=== PATIENT | female | born 1990 | race Caucasian/White ===

== ENCOUNTER → 2017-07-09 | Emergency (ER) | payer MEDICAID | END | disposition left against medical advice (07) | LOC: ED 00:03 | DX: Z53.9 Procedure and treatment not carried out, unspecified reason (principal) ==

== ENCOUNTER 2019-06-06 03:27 | Inpatient (IN) | payer OTHER ==
[2019-06-06 04:35] LABS: BASOPHIL % 0.2 % (0.0-0.4); Basophil (Absolute #) 0.02 (0-0.4); Eosinophil % 1.2 % (0.00-5.0); Eosinophil (Absolute #) 0.13 (0-0.5); Granulocyte Absolute (ANC) 7.78 (1.4-6.9); Granulocytes % 74.1 % (36.0-66.0); Hematocrit 32.3 % (35-47); Hemoglobin 11.1 gm/dl (12.0-16.0); Lymphocyte (Absolute #) 1.85 (1.0-4.6); Lymphocytes % 17.6 % (24.0-44.0); Mean Corpuscular Hgb Concent. 34.4 g/dl (32-36); Monocyte (Absolute #) 0.73 (0.0-1.3); Monocytes % 6.9 % (0.0-12.0); Platelet Count 111 K/mm3 (150-450); Red Blood Count 3.63 M/mm3 (4.1-5.4); Red Cell Distribution Width 14.2 % (11.5-14.0); White Blood Count 10.5 K/mm3 (4.0-10.5)
[2019-06-06 04:35] LABS: Appearance SLIGHTLY CLOUDY (CLEAR); Bilirubin NEGATIVE (NEGATIVE); Blood SMALL Ery/ul (0-5); Epithelial Cells RARE /HPF (FEW); Glucose NEGATIVE (NEGATIVE); Ketones NEGATIVE (NEGATIVE); Leukocyte Esterase LARGE (NEGATIVE); Mucus SLIGHT /HPF (NEGATIVE); Nitrite NEGATIVE (NEGATIVE); Protein,Urine Dip NEGATIVE (Negative); Specific Gravity 1.011 (1.005-1.025); Urobilinogen NEGATIVE mg/dL (0-1)
[2019-06-06 04:39] LABS: Mean Corpuscular Hemoglobin 30.5 pg (26-32)
[2019-06-06 04:41] LABS: Amphetamine,Urine NEGATIVE (NEGATIVE); Barbiturate,Urine NEGATIVE (NEGATIVE); Benzodiazepine,Urine NEGATIVE (NEGATIVE); Cocaine,Urine NEGATIVE (NEGATIVE); Methadone,Urine NEGATIVE (NEGATIVE); Opiate,Urine NEGATIVE (NEGATIVE); PCP,Urine NEGATIVE (NEGATIVE); THC,Urine NEGATIVE (NEGATIVE)
[2019-06-06 04:44] LABS: INR 0.96 (0.8-3.0); PROTIME 10.8 SECONDS (9.95-12.35)
[2019-06-06 04:47] LABS: PTT 28.5 SECONDS (25.3-37.0)
[2019-06-06] MEDS ORDERED: Lactated Ringers 1,000 ML IV SCH (05:00)
[2019-06-06] MEDS ORDERED: Reglan 10 MG/2 ML IV SCH (05:00)
[2019-06-06] MEDS ORDERED: Pepcid 20 MG VIAL IV SCH (05:00)
[2019-06-06] MEDS ORDERED: Nubain 10 MG/ML IV PRN (05:00)
[2019-06-06] MEDS ORDERED: Dulcolax 10 MG SUPP PR PRN (05:00)
[2019-06-06] MEDS ORDERED: Anucort-HC SUPPOSITORY PR PRN (05:00)
[2019-06-06] MEDS ORDERED: CORTISONE 1% CREAM TP PRN (05:00)
[2019-06-06] MEDS ORDERED: DEMEROL 50 MG IV PRN (05:00)
[2019-06-06] MEDS ORDERED: TYLENOL EXTRA STRENGTH 500 MG PO PRN (05:00)
[2019-06-06] MEDS ORDERED: BICITRA 30 ML CUP PO SCH (05:00)
[2019-06-06] MEDS ORDERED: CLINDAMYCIN-D5W 900 MG/50 ML*** 900 MG/50 ML BAG IV SCH (05:00)
[2019-06-06] MEDS ORDERED: LANSINOH 40 GM TOP PRN (05:00)
[2019-06-06] MEDS ORDERED: MORPHINE SULFATE 2 MG INJ IV PRN (05:00)
[2019-06-06 05:01] LABS: ABO TYPING B; Antibody Screen NEGATIVE (NEGATIVE); RH TYPING NEGATIVE
[2019-06-06] MEDS ORDERED: Astramorph-Pf 5 MG/10 ML ONE (06:15)
[2019-06-06] MEDS ORDERED: Pitocin 10 UNITS/ML ONE ×2 (06:17→06:58)
[2019-06-06] MEDS ORDERED: PHENYLEPHRINE HCL ONE (06:18)
[2019-06-06] MEDS ORDERED: Lactated Ringers 1,000 ML IV ONE ×2 (06:21→06:25)
[2019-06-06] MEDS ORDERED: Zofran 4 MG/2 ML VIAL IV PRN (07:00)
[2019-06-06] MEDS ORDERED: HOLD NARCOTIC ANALGESICS AND SEDATIVES X24 HR MC PRN (07:00)
[2019-06-06] MEDS ORDERED: Narcan 0.4 MG/ML IV PRN (07:00)
[2019-06-06] MEDS ORDERED: BENADRYL 50 MG/ML IV PRN (07:00)
[2019-06-06] MEDS ORDERED: MARCAINE 0.5%-EPI 1:200,000 VL IJ ONE (07:12)
[2019-06-06] MEDS ORDERED: DEMEROL 50 MG ONE (07:50)
--- NOTE | 2019-06-06 08:29 | OP ---
SURGERY DATE/TIME: 06/06/2019629 PREOPERATIVE DIAGNOSES: 1) History of prior section. 2) Term intrauterine . POSTOPERATIVE DIAGNOSES: 1) History of prior section. 2) Term intrauterine . PROCEDURE: Repeat low transverse section. SURGEON: Osmar Thompson M.D. ESTIMATED BLOOD LOSS: 400 cc. IV FLUIDS: 2300 cc of crystalloid. URINE OUTPUT: 50 cc of clear straw-colored urine. ANESTHESIA: Spinal by David Mandujano CRNA. SPECIMENS: None. DESCRIPTION OF PROCEDURE: After informed written consent was obtained, the patient was taken to the operating room. She had spinal anesthesia performed and was prepped and draped in the usual sterile fashion. After adequate level of anesthesia was assessed, a low transverse skin incision was made by knife carried down through the subcutaneous fat to the level of the fascia. The fascia was nicked on both sides of the midline and extended in horizontal fashion using curved Gonzales scissors. The superior free edge of the fascia was grasped with Stephanie clamps and the underlying rectus muscles were dissected free. The same was repeated inferiorly. The peritoneal cavity was opened bluntly and extended in horizontal fashion. Bladder blade was then inserted. Bladder flap created and reflected over the lower uterine segment. A horizontal uterine incision was made by knife and carried down to the level of the amniotic membranes which were carefully artificially ruptured. A viable female delivered from the vertex presentation with strong cry immediately upon delivery. Oropharynx and nares were bulb suctioned. The cord was clamped and cut and she was handed off to the awaiting nursery team. The placenta was manually extracted and the uterus was exteriorized. The uterine cavity was sponge curetted clean with lap sponge. The uterine incision was closed with #1 chromic in a running locked fashion with small area of oozing in the right lateral aspect which was controlled with a second layer of #1 chromic with good closure and good hemostasis following the addition of this extra layer. The posterior cul-de-sac was wiped free of any blood and clot and the uterus was returned to the peritoneal cavity. Lateral gutters were wiped free of blood and clot with a moist lap sponge. The incision was carefully inspected again and noted to have hemostasis and good closure. Next, the fascia was closed with 0 Vicryl in running fashion with good closure and good hemostasis were achieved. The subcutaneous fat was irrigated with warm, sterile saline and finally the skin layer was closed with 4-0 undyed Vicryl in a running subcuticular fashion. Steri-Strips and occlusive dressing were placed over the incision. The patient was transferred to the recovery in good condition.
[2019-06-06] MEDS: Dextrose 5%-Lr IV Solution 1000 ML 1,000 ML IV SCH ×2 (08:45→17:11)
[2019-06-06 08:52] LABS: Appearance CLEAR (CLEAR); Bilirubin NEGATIVE (NEGATIVE); Blood NEGATIVE Ery/ul (0-5); Glucose NEGATIVE (NEGATIVE); Ketones TRACE (NEGATIVE); Leukocyte Esterase NEGATIVE (NEGATIVE); Mucus SLIGHT /HPF (NEGATIVE); Nitrite NEGATIVE (NEGATIVE); Protein,Urine Dip NEGATIVE (Negative); Specific Gravity 1.012 (1.005-1.025); Urobilinogen NEGATIVE mg/dL (0-1)
[2019-06-06] MEDS: FERREX 150 PO SCH (10:00)
[2019-06-06] MEDS: Colace 100 MG PO SCH ×2 (10:00→21:55)
[2019-06-06] MEDS: MOTRIN 400 MG PO PRN ×2 (12:11→21:54)
[2019-06-06] MEDS: PERCOCET TABLET 5/325MG PO PRN ×2 (14:44→21:55)
[2019-06-06] MEDS: CLARITIN 10 MG PO PRN (14:44)
[2019-06-07] MEDS: PERCOCET TABLET 5/325MG PO PRN ×2 (02:07→06:06)
[2019-06-07] MEDS: CLARITIN 10 MG PO PRN (02:11)
[2019-06-07] MEDS: MOTRIN 400 MG PO PRN ×3 (03:52→20:40)
[2019-06-07] MEDS: Mylicon 80MG PO PRN ×2 (03:57→15:02)
[2019-06-07] MEDS ORDERED: Ambien 10 MG PO PRN (05:00)
[2019-06-07] MEDS ORDERED: NORCO 5/325 MG PO PRN (07:00)
[2019-06-07 07:08] VITALS: O2SAT 99
[2019-06-07 07:17] LABS: BASOPHIL % 0.3 % (0.0-0.4); Basophil (Absolute #) 0.03 (0-0.4); Eosinophil % 1.9 % (0.00-5.0); Eosinophil (Absolute #) 0.19 (0-0.5); Granulocyte Absolute (ANC) 7.23 (1.4-6.9); Granulocytes % 72.3 % (36.0-66.0); Hematocrit 27.3 % (35-47); Hemoglobin 9.3 gm/dl (12.0-16.0); Lymphocyte (Absolute #) 1.77 (1.0-4.6); Lymphocytes % 17.7 % (24.0-44.0); Mean Cell Volume 89.8 fl (78-100); Mean Corpuscular Hgb Concent. 34.1 g/dl (32-36); Mean Platelet Volume 13.8 fl (6-9.5); Monocyte (Absolute #) 0.78 (0.0-1.3); Monocytes % 7.8 % (0.0-12.0); Platelet Count 106 K/mm3 (150-450); Red Blood Count 3.04 M/mm3 (4.1-5.4)
[2019-06-07 07:24] LABS: Mean Corpuscular Hemoglobin 30.5 pg (26-32)
[2019-06-07] MEDS: FERREX 150 PO SCH (09:57)
[2019-06-07] MEDS: Colace 100 MG PO SCH ×2 (09:58→20:39)
[2019-06-07] MEDS ORDERED: Adacel Vial IM ONE (10:00)
[2019-06-07] MEDS ORDERED: Nubain 10 MG/ML IV PRN (10:12)
[2019-06-07] MEDS: NORCO 5/325 MG PO PRN ×4 (10:17→23:18)
[2019-06-08] MEDS: MOTRIN 400 MG PO PRN ×2 (03:31→10:01)
[2019-06-08] MEDS: NORCO 5/325 MG PO PRN ×2 (03:31→07:29)
[2019-06-08] MEDS: Mylicon 80MG PO PRN (03:34)
[2019-06-08 09:15] VITALS: BP 125/68; PULSE 84
--- NOTE | 2019-06-08 09:15 | PCM.DS ---
Discharge Summary Date of Admission: 06/06/19 03:27 Admitting Physician: GUANAKITO ANGUIANO Consults: Consults on Case 06/06/19 05:00 Notify Anesthesia Provider ROUTINE Notify Physician OF ADMISSION Primary Care Provider: GUAANKITO ANGUIANO Allergies Allergies Penicillins Allergy (Severe, Verified 06/06/19 03:43) Difficulty Breathing occured in childhood Hospital Summary - Hospital Course Hospital Course: patient had repeat on 06/06 with no complications. she is ambulating and has mild lochia . - Vitals & Intake/Output Vital Signs: Vital Signs Temperature 98.0 F 06/08/19 02:00 Pulse Rate 83 06/08/19 02:00 Respiratory Rate 20 06/08/19 02:00 Blood Pressure 126/74 06/08/19 02:00 O2 Sat by Pulse Oximetry 99 06/08/19 02:00 Intake & Output: Intake & Output 06/05/19 06/06/19 06/07/19 06/08/19 11:59 11:59 11:59 11:59 Intake Total 3901 1950 Output Total 200 700 Balance -200 3201 1950 Weight 90.718 kg - Lab Result Diagrams: 06/07/19 07:10 Micro Results-Entire Visit: Microbiology 06/06/19 06:41 Urine Culture - Final Urine, Catheterized NO GROWTH - Procedures and Test Procedures and Tests throughout Hospitalization: Therapy Orders & Screens 06/06/19 07:49 Standby Comment: Diagnosis: Post Op Discharge Exam General Appearance: no apparent distress, alert Eye Exam: PERRL, EOMI, eyes nml inspection Respiratory Exam: normal breath sounds, lungs clear, No respiratory distress Cardiovascular Exam: regular rate/rhythm, normal heart sounds Gastrointestinal/Abdomen Exam: soft, other (incision clean, dry, intact) Extremity Exam: normal inspection, normal range of motion Skin Exam: normal color, warm, dry Final Diagnosis/Problem List - Final Discharge Diagnosis/Problem (1) delivery delivered Current Visit: Yes Status: Acute Assessment & Plan: patient was advised f/u in 1 week in office, she recently moved so is concerned about transportation. again advised baby needs seen in 2 days in OB dept for checkup and she and baby both need to see me in 1 week. Code(s): O82 - ENCOUNTER FOR DELIVERY WITHOUT INDICATION - Discharge Disposition: Home, Self-Care Condition: Stable Prescriptions: New Hydrocodone/APAP 5-325 Tab^^^ [[place] 5-325 Tablet^^^] 1 - 2 tab PO Q6HPRN PRN #30 tablet MDD 6 PRN Reason: Pain Continue Ferrous Sulfate [Iron] 325 mg PO DAILY Discontinued Vits W-Ca,Fe,FA(<1Mg) [] 1 each PO DAILY Follow up with: GUANAKITO ANGUIANO MD [Primary Care Provider] - 1 Week
[2019-06-08] MEDS: Colace 100 MG PO SCH (09:36)
[2019-06-08] MEDS: FERREX 150 PO SCH (09:36)
== END 2019-06-08 10:13 | disposition home or self-care (01) | DRG 788 ==
LOC: UNDOADMIN 03:27 → OB 03:27 → NURS 03:27
PROVIDERS: ADMIT Family Medicine; ATTEND Family Medicine
PROC: 10D00Z1 Extraction of Products of Conception, Low, Open Approach (ICD-10-PCS; principal; 2019-06-06)
DX: O34.211 Maternal care for low transverse scar from previous cesarean delivery (principal); Z3A.39 39 weeks gestation of pregnancy; Z37.0 Single live birth
CPT/HCPCS: 36415; 62322; 64488; 76937; 76942; 80307; 81001; 85025; 85610; 85730; 86850; 86900; 86901; 87086; 87340; 90471; 90715; 94799; J2175; J2274; J2300; J2370; J2590; L0625; A9270-GY